=== PATIENT | female | born 1980 | race Caucasian/White ===

== ENCOUNTER 2017-04-26 09:26 | Emergency (ER) | payer OTHER ==
[2017-04-26 09:45] VITALS: RESP 18
--- NOTE | 2017-04-26 10:11 | PD ---
HPI Chief Complaint ctx Travel History International Travel<30 Days: No Contact w/Intl Traveler<30Days: No Known Affected Area: No History of Present Illness HPI 36-year-old 015, IUP at 32.6 care, treated by obesity, prior delivery 3 The patient presents complaining of the onset of irregular but painful contractions at 3 AM this morning. She reports that although the contractions are irregular in pattern, they are have increased in intensity and frequency overnight to now every 4-12 minutes. She denies any aggravating or alleviating factors except as noted. She reports that there was no relief with a warm bath. She is bringing drinking a lot of water by mouth. She reports associated pelvic and vaginal pressure. She denies any LOF or VB. She reports good movement. She has no other OB complaints at this time Weeks Gestation: 32 Para: 3 : 5 Last Menstrual Period: Apr 26, 2017 History Past Medical History Narrative Medical Obesity Obstetric History Obstetric History SAB x1 FT C/S x3, one with twins Past Surgical History Narrative Surgical C/S x3 Family History Narrative Family History Colon CA Brain aneurysm Social History Alcohol Use: No Tobacco Use: No Substance Abuse: No Allergies-Medications (Allergen,Severity, Reaction): Coded Allergies: doxycycline (Unverified Allergy, Mild, 04/09/17) hives, swelling in mouth Review of Systems Except as stated in HPI: all other systems reviewed are Neg Physical Exam Narrative GENERAL: Well-nourished, well-developed patient. SKIN: Warm and dry. HEAD: Normocephalic and atraumatic. EYES: No scleral icterus. No injection or drainage. ENT: No nasal drainage noted. Mucous membranes pink. Airway patent. NECK: Supple, trachea midline. No JVD. CARDIOVASCULAR: Regular rate and rhythm without murmurs, gallops, or rubs. RESPIRATORY: Breath sounds equal bilaterally. No accessory muscle use. BREASTS: deferred ABDOMEN/GI: Abdomen soft, non-tender, bowel sounds present, no rebound, no guarding Gravid GENITOURINARY: External Genitalia: intact and normal in appearance, normal BUS, no cervical or vaginal masses noted, normal rugated and physiologic discharge noted on speculum examination. fibronectin obtained. SVE closed/thick/high/ posterior. Membranes intact. FHT's: Category 1 heart rate tracing with baseline 140s. Good accelerations and no decelerations noted. NST is reactive. EXTREMITIES: No cyanosis or edema. BACK: Nontender without obvious deformity. No CVA tenderness. NEUROLOGICAL: Awake and alert. Motor and sensory grossly within normal limits. Five out of 5 muscle strength in all muscle groups. Normal speech. Psychiatric: Normal memory and affect Musculoskeletal: Grossly normal range of motion, gait and muscle strength MDM Plan Assessment/Plan: 1. IUP at 32.6 2. contractions: Patient with regular contractions noted on monitoring , will give 1 L IV fluid bolus, fibronectin obtained and sent, and urinalysis obtained and sent. SVE closed without evidence of labor, full sign out given to Dr. Sam who will follow up on results. 3. Prior delivery 3 4. Obesity 5. well-being: Patient with reassuring testing with reactive NST and category 1 heart rate tracing FHR is appropriate and reassuring for gestational age; patient will be given Kick counts if discharged home. 6. Follow-up with Dr. Pratt in 2-3 days if discharged home or sooner if needed Madai Maravilla MD Apr 26, 2017 10:11
[2017-04-26] MEDS ORDERED: LACTATED RINGER'S 1000 ML INJ 1,000 ML IV SCH (10:13)
[2017-04-26 10:34] LABS: BACTERIA, URINE RARE /hpf; BLOOD, URINE NEG (NEG); COMMENT (UR) CULT NOT INDICATED; CULTURE IF INDICATED CULT NOT INDICATED; GLUCOSE,URINE NEG (NEG); KETONE, URINE NEG (NEG); NITRITE,URINE NEG (NEG); PH, URINE 7.5 (5.0-8.5); SQUAMOUS EPITHELIAL CELL URINE <1 /hpf (0-5); URINE COLOR YELLOW (YELLW/STRAW)
[2017-04-26 10:54] VITALS: TEMP 98.4
[2017-04-26] MEDS ORDERED: NIFEdipine 10 MG CAP PO ONE (14:00)
== END 2017-04-26 14:38 | disposition home or self-care (01) ==
LOC: HOBED 09:26
DX: O62.9 Abnormality of forces of labor, unspecified (principal); O99.213 Obesity complicating pregnancy, third trimester; O34.219 Maternal care for unspecified type scar from previous cesarean delivery; Z3A.32 32 weeks gestation of pregnancy
CPT/HCPCS: 59025; 81001; 82731; 96360; 96361; 99284; J7120

== ENCOUNTER 2017-06-08 07:22 | Inpatient (IN) | payer OTHER ==
[2017-06-08] VITALS (11 sets, daily range): BP systolic 109–131; BP diastolic 59–85; PULSE 65–100; RESP 16–18; TEMP 97.6–98.3; O2SAT 98–100
[~2017-06-08] VITALS: Ht 160 cm; Wt 83.0 kg
[2017-06-08] MEDS ORDERED: LACTATED RINGER'S 1000 ML INJ 1,000 ML IV ONE (07:55)
[2017-06-08 08:05] LABS: BASOPHIL % 0.2 % (0.0-2.0); EOSINOPHIL # 0.1 TH/MM3 (0-0.4); EOSINOPHIL % 0.7 % (0.0-4.0); HEMATOCRIT 36.3 % (35.0-46.0); LYMPH % 27.1 % (9.0-44.0); LYMPHOCYTE # 4.2 TH/MM3 (1.0-4.8); MEAN CELL VOLUME 84.2 FL (80.0-100.0); MEAN CORPUSCULAR HEMOGLOBIN 28.2 PG (27.0-34.0); MEAN CORPUSCULAR HGB CONC 33.5 % (32.0-36.0); MONO % 6.9 % (0.0-8.0); NEUT % 65.1 % (16.0-70.0); PLATELET COUNT 209 TH/MM3 (150-450); RED BLOOD COUNT 4.32 MIL/MM3 (4.00-5.30); RED CELL DISTRIBUTION WIDTH 14.5 % (11.6-17.2); WHITE BLOOD COUNT 15.3 TH/MM3 (4.0-11.0)
[2017-06-08 08:06] LABS: HEMO FLAGS AUTO DIFF
--- NOTE | 2017-06-08 08:08 | HHI.HP ---
HPI Chief Complaint Repeat and bilateral tubal ligation. Date Seen: Jun 08, 2017 Travel History International Travel<30 Days: No Contact w/Intl Traveler<30Days: No History of Present Illness HPI Patient is a 37 year old at 39-0/7 weeks gestation who presents today for repeat with bilateral tubal ligation. She denies any vaginal bleeding , discharge, gush or leaking of fluid. Positive movement. Occasional contractions. History of Preeclampsia in previous , this complicated by contractions, on Procardia XL 30 mg by mouth daily. 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 Obstetric History Obstetric History x 3 AMA Hx Pre-eclampsia Past Surgical History Narrative Surgical Cholecystectomy 2016 D&E 2016 section 2000, 2006, 2011 Family History Narrative Family History Breast cancer Colon cancer Aneurysm Social History Alcohol Use: No Tobacco Use: No Substance Abuse: No Allergies-Medications (Allergen,Severity, Reaction): Coded Allergies: doxycycline (Unverified Allergy, Mild, 04/09/17) hives, swelling in mouth Review of Systems Except as stated in HPI: all other systems reviewed are Neg General / Constitutional: No: Fever, Chills Eyes: No: Blurred Vision, Visual changes HENT: No: Headaches Cardiovascular: No: Chest Pain or Discomfort, Palpitations Respiratory: No: Short of Breath Gastrointestinal: No: Nausea, Vomiting Genitourinary: No: Dysuria, Hematuria, Pelvic Pain, Discharge, Vaginal Bleeding Musculoskeletal: No: Edema Neurologic: No: Headache Psychiatric: No: Substance Abuse Physical Exam Narrative GENERAL: Well-nourished, well-developed patient. SKIN: Warm and dry. HEAD: Normocephalic and atraumatic. EYES: No scleral icterus. No injection or drainage. ENT: No nasal drainage noted. Mucous membranes pink. Airway patent. NECK: Supple, trachea midline. No JVD. CARDIOVASCULAR: Regular rate and rhythm without murmurs, gallops, or rubs. RESPIRATORY: Breath sounds equal bilaterally. No accessory muscle use. BREASTS: Bilateral exam showed no masses , no retractions, no nipple discharge. ABDOMEN/GI: Abdomen soft, non-tender, bowel sounds present, no rebound, no guarding Gravid to 39 weeks size GENITOURINARY: External Genitalia: intact and normal in appearance Presentation: vertex Membranes: intact Uterine Contractions: occasional FHT's: Category: I Baseline: 150 Reactive: + Variability: moderate Decels: none EXTREMITIES: No cyanosis or edema. BACK: Nontender without obvious deformity. No CVA tenderness. NEUROLOGICAL: Awake and alert. Motor and sensory grossly within normal limits. Normal speech. Caprini VTE Risk Assessment Caprini VTE Risk Assessment: No/Low Risk (score <= 1) Caprini Risk Assessment Model Point Value = 1 Point Value = 2 Point Value = 3 Point Value = 5 Age 41-60 Minor surgery BMI > 25 kg/m2 Swollen legs Varicose veins or History of unexplained or recurrent spontaneous Oral contraceptives or hormone replacement Sepsis (< 1 month) Serious lung disease, including pneumonia (< 1 month) Abnormal pulmonary function Acute myocardial infarction Congestive heart failure (< 1 month) History of inflammatory bowel disease Medical patient at bed rest Age 61-74 Arthroscopic surgery Major open surgery (> 45 min) Laparoscopic surgery (> 45 min) Malignancy Confined to bed (> 72 hours) Immobilizing plaster cast Central venous access Age >= 75 History of VTE Family history of VTE Factor V Leiden Prothrombin [id number] Lupus anticoagulant Anticardiolipin antibodies Elevated serum homocysteine Heparin-induced thrombocytopenia Other congenital or acquired thrombophilia Stroke (< 1 month) Elective arthroplasty Hip, pelvis, or leg fracture Acute spinal cord injury (< 1 month) Prophylaxis Regimen Total Risk Factor Score Risk Level Prophylaxis Regimen 0-1 Low Early ambulation 2 Moderate Order ONE of the following: *Sequential Compression Device (SCD) *Heparin 5000 units SQ BID 3-4 Higher Order ONE of the following medications: *Heparin 5000 units SQ TID *Enoxaparin/Lovenox 40 mg SQ daily (WT < 150 kg, CrCl > 30 mL/min) *Enoxaparin/Lovenox 30 mg SQ daily (WT < 150 kg, CrCl > 10-29 mL/min) *Enoxaparin/Lovenox 30 mg SQ BID (WT < 150 kg, CrCl > 30 mL/min) AND/OR *Sequential Compression Device (SCD) 5 or more Highest Order ONE of the following medications: *Heparin 5000 units SQ TID (Preferred with Epidurals) *Enoxaparin/Lovenox 40 mg SQ daily (WT < 150 kg, CrCl > 30 mL/min) *Enoxaparin/Lovenox 30 mg SQ daily (WT < 150 kg, CrCl > 10-29 mL/min) *Enoxaparin/Lovenox 30 mg SQ BID (WT < 150 kg, CrCl > 30 mL/min) AND *Sequential Compression Device (SCD) Data Data Vital Signs Reviewed: Yes Orders Orders Admit To Inpatient (06/08/17 ) Code Status (06/08/17 07:55) Vital Signs (Adult) .ON ADMISSION (06/08/17 07:55) Activity Oob Ad Connie (06/08/17 07:55) Heart (06/08/17 07:55) Urinary Catheter Management WISAM.Q8H (06/08/17 07:55) ^ Preps (06/08/17 07:55) Scd / Gavin / Foot Pump WISAM.QSHIFT (06/08/17 07:55) ^ Ultrasound For Locatio (06/08/17 07:55) Diet Npo (06/08/17 Breakfast) Lactated Ringer's 1000 Ml Inj (Lr 1000 M (06/08/17 07:55) Lactated Ringer's 1000 Ml Inj (Lr 1000 M (06/08/17 08:25) Cefazolin 2 Gm Premix (Ancef 2 Gm Premix (06/08/17 09:00) Citric Acid-Sodium Citrate Liq (Bicitra (06/08/17 09:30) Type And Screen (06/08/17 07:55) Complete Blood Count With Diff (06/08/17 07:55) Urinalysis - C+S If Indicated (06/08/17 07:55) Inpatient Certification (06/08/17 ) Specimen To Be Collected PRN (06/08/17 07:55) Group B Strep: Negative Assessment/Plan Assessment and Plan 37 year old at 39-0/7 weeks gestation. 1. IUP- Category I tracing, reassuring. 2. Repeat and bilateral tubal ligation. 3. Hx Pre-eclampsia 4. GBS negative. 5. AMA, grand multiparity dw Juana Small MD, R3 Jun 08, 2017 08:08
[2017-06-08] MEDS ORDERED: METOCLOPRAMIDE HCL 10 MG/2 ML VIAL ONE (08:10)
[2017-06-08 08:21] LABS: BACTERIA, URINE MOD /hpf; BLOOD, URINE TRACE (NEG); COMMENT (UR) CULTURE INDICATED; CULTURE IF INDICATED CULTURE INDICATED; GLUCOSE,URINE NEG (NEG); KETONE, URINE NEG (NEG); MUCUS URINE FEW /lpf (OCC); NITRITE,URINE NEG (NEG); SQUAMOUS EPITHELIAL CELL URINE 2 /hpf (0-5); URINE COLOR YELLOW (YELLW/STRAW)
[2017-06-08] MEDS ORDERED: LACTATED RINGER'S 1000 ML INJ 1,000 ML IV SCH ×2 (08:25→17:20)
[2017-06-08 08:48] LABS: BANDS 2 % (0-6); EOSINOPHILS 1 % (0-4); MYELOCYTES 6 % (0-0); NEUTROPHIL # MANUAL DIFF 9.6 TH/MM3 (1.8-7.7); POLYS (SEG NEUTROPHILS) 55 % (16-70); WBC DIFF SAMPLE 100
[2017-06-08 08:49] LABS: PLATELET ESTIMATE SMEAR NORMAL (NORMAL); PLATELET MORPHOLOGY NORMAL (NORMAL); SCAN/DIFF FINAL DIFF MANUAL
[2017-06-08] MEDS ORDERED: ceFAZolin 2 GM PREMIX 50 ML IV SCH (09:00)
[2017-06-08] MEDS ORDERED: CITRIC ACID-SODIUM CITRATE LIQ 30 ML UDC PO SCH (09:30)
[2017-06-08] MEDS ORDERED: ACETAMINOPHEN 1000 MG/100 ML 100 ML IV ONE (10:03)
[2017-06-08] MEDS ORDERED: BUPIVACAINE HCL PF 0.25% 10 ML VIAL ONE ×2 (10:58→11:00)
[2017-06-08] MEDS ORDERED: ONDANSETRON HCL 4 MG/2 ML VIAL ONE (11:59)
[2017-06-08] MEDS ORDERED: SODIUM CHLORIDE 0.9% 20 ML VIAL IV ONE (12:00)
[2017-06-08] MEDS ORDERED: DEXAMETHASONE SOD PHOS 4 MG/ML VIAL IV ONE (12:00)
[2017-06-08] MEDS ORDERED: LIDOCAINE 2%/EPINEPHrine PF 1:200,000 20ML SDV OTHER ONE (12:00)
[2017-06-08] MEDS ORDERED: OXYTOCIN 10 UNIT/ML AMP IV ONE (12:00)
[2017-06-08] MEDS ORDERED: MORPHINE SULFATE PF 5 MG/10 ML VIAL ONE (12:00)
[2017-06-08] MEDS ORDERED: NORMOSOL R INJ 2,000 ML IV ONE (12:00)
[2017-06-08] MEDS ORDERED: ONDANSETRON HCL 4 MG/2 ML VIAL IV PUSH ONE (12:00)
[2017-06-08] MEDS ORDERED: ceFAZolin INJ 1,000 MG VIAL IV ONE (12:00)
[2017-06-08] MEDS ORDERED: PHENYLEPH/NS 1000 MCG/10 ML SYR IV ONE (12:00)
[2017-06-08] MEDS ORDERED: DOCUSATE SODIUM 50 MG/SENNA 8.6 MG TAB PO PRN (12:30)
[2017-06-08] MEDS ORDERED: oxyCODONE/ACETAMINOPHEN 5 MG/325 MG TAB PO PRN (12:30)
[2017-06-08] MEDS ORDERED: SODIUM CHLORIDE 0.9% FLUSH 10 ML FLUSH IV FLUSH PRN (12:30)
[2017-06-08] MEDS ORDERED: ZOLPIDEM TARTRATE 5 MG TAB PO PRN (12:30)
[2017-06-08] MEDS ORDERED: OXYTOCIN 30 UNITS-500ML PREMIX 500 ML IV ONE ×2 (12:30)
[2017-06-08] MEDS ORDERED: ONDANSETRON HCL 4 MG/2 ML VIAL IV PUSH PRN (12:30)
[2017-06-08] MEDS ORDERED: EPIDURAL-DIPHENHYDRAMINE HCL 50 MG CAP PO PRN (14:00)
[2017-06-08] MEDS ORDERED: EPIDURAL-NALOXONE HCL 0.4 MG/ML AMP IV PUSH PRN (14:00)
[2017-06-08] MEDS ORDERED: EPIDURAL-DIPHENHYDRAMINE HCL 50 MG/ML VIAL IV PUSH PRN (14:00)
[2017-06-08] MEDS ORDERED: EPIDURAL-NO SYSTEMIC NARCOTICS PRN (14:00)
[2017-06-08] MEDS ORDERED: EPIDURAL-DO NOT ADMINISTER ANTICOAGULANTS PRN (14:00)
[2017-06-08] MEDS ORDERED: SE-NCHW CHEW (15:35)
--- NOTE | 2017-06-08 16:50 | MP ---
cc: MARCELL PRATT DATE OF SURGERY 07/09/17 PREOPERATIVE DIAGNOSIS 1. Intrauterine at 39 weeks 2. Desires permanent sterilization. 3. Desires revision of her large incision. POSTOPERATIVE DIAGNOSIS 1. Intrauterine at 39 weeks 2. Desires permanent sterilization. 3. Desires revision of her large incision. 4. Small suprapubic hernia 2 x 2 cm. PROCEDURE 1. Repeat low transverse section 2. Excision of large scar 3. Bilateral tubal ligation 4. Repair of a hernia suprapubically ANESTHESIA Spinal SURGEON Niles Pratt MD FINDINGS A normal male infant, Apgars 9 and 9, weight 8 pounds 2 ounces, baby's name is Grecia. The uterus was normal and scarred from previous surgeries. Fallopian tubes, ovaries were normal. Posterior and anterior cul-de-sac were normal. There was a suprapubic hernia in the fascia 2 x 2 cm below the previous incision. COMPLICATIONS None. COUNTS Correct. ESTIMATED BLOOD LOSS 600 mL FLUIDS Crystalloids. DISPOSITION The patient tolerated the procedure well and went to recovery room in good condition. PROCEDURE IN DETAIL The patient was taken to the operating room identified by name band and verbally and given a spinal anesthetic. She was prepped and draped in the usual sterile manner for a section. She had a large hip to hip indented scar which she wanted repair. Therefore, we went ahead and excised that entire scar, took is down to the fascia. The fascia was taken off the rectus muscle and the abdomen entered under direct vision. The rectus muscles were noted to be spread very wide. The incision was extended with care to avoid the urinary bladder and a bladder flap was created placing the bladder blade into the incision and taking down the peritoneum off the lower uterine segment. The incision was made then in a transverse manner along the lower uterine segment until the uterine cavity was entered. Clear fluid was noted and the incision was extended with the surgeon's fingers. vertex was grasped and with gentle fundal pressure was delivered easily. The remainder of the infant was delivered. There was a nuchal cord x1 and the cord clamping was delayed for 45 seconds. The baby was passed off to the resuscitation team present at the time. The cord blood was obtained. The placenta was removed manually and the uterus curettaged several times with a wet lap. The uterine incision was prepped with 0 Vicryl in a running fashion, second layer imbricating the first. Several [id number] needed to be placed here because of oozing. Once this had been accomplished, the fallopian tubes were identified and knuckled over and a portion removed from the mid portion of the fallopian tube with a #1 catgut and sent off for pathologic evaluation. The procedure was repeated on the contralateral side. The cul-de-sac and gutters were cleaned of blood and debris. The uterus delivered back into the abdomen. There was some oozing from the incision on the right side and several gmdefm-av-cdali stitches were used in that area. Hemostasis was good. However, there was some oozing in this area and some Avitene was placed in this area to control the oozing. At this point, the rectus muscles were still spread way apart and the fascia was taken up almost to the umbilicus until the rectus muscles were more close. The rectus muscles were then reapproximated in several layers trying to create normal anatomy with 0 Vicryl in a running fashion. Once this had been accomplished, the fascia was repaired with 0 Vicryl without difficulty in a running fashion. The hernia was then repaired with 0 Vicryl in several [id number] fashions on the lower fascial hernia. The incision was irrigated with a large amount of fluid at this time and the rectus muscles were spread quite widely. We dissected the fascia up to the umbilicus where the rectus muscles were more closely approximated and then we approximated the rectus muscle with several layers of 0 Vicryl running fashion to replicate normal anatomy. Once this had been accomplished, the subcu layer was placed with a 2-0 Vicryl in a running fashion and more superficial than that we put another line of subcu with a 3-0 Vicryl to reapproximate the skin edges more closely. At this point, we tried to fix the doge ears by undermining the corners and we repaired the skin with a 4-0 Monocryl. It required two sutures to do this since the incision was so wide. At this point, there were three places where the skin edges were not perfectly approximated and we put some 4-0 Monocryl sutures through and through in these areas. At this point, a sterile pressure dressing was placed. The patient was taken to the recovery room in good condition. R. MD RICO Ryder/ /12:24 PM /4:31 PM
[2017-06-08] MEDS ORDERED: SODIUM CHLORIDE 0.9% FLUSH 10 ML FLUSH IV FLUSH SCH (21:00)
[2017-06-08] MEDS ORDERED: OXYTOCIN 30 UNITS-500ML PREMIX 500 ML IV PRN (22:30)
[2017-06-08] MEDS: KETOROLAC TROMETHAMINE 60 MG/2 ML (IM) VIAL IM PRN (22:46)
[2017-06-09 00:02] VITALS: BP 101/68; PULSE 63; RESP 16; TEMP 98.1
[2017-06-09 04:31] VITALS: BP 97/64; PULSE 74; PULSE 77; RESP 16; TEMP 97.5
[2017-06-09] MEDS: KETOROLAC TROMETHAMINE 60 MG/2 ML (IM) VIAL IM PRN ×2 (06:14→11:59)
[2017-06-09 08:10] VITALS: BP 92/67; PULSE 79; RESP 18; TEMP 98.1
[2017-06-09 08:49] LABS: AUTOMATED NEUTROPHIL # 14.6 TH/MM3 (1.8-7.7); BASOPHIL % 0.2 % (0.0-2.0); EOSINOPHIL % 0.2 % (0.0-4.0); HEMATOCRIT 30.6 % (35.0-46.0); HEMO FLAGS DIFF FINAL; LYMPH % 18.7 % (9.0-44.0); LYMPHOCYTE # 3.6 TH/MM3 (1.0-4.8); MEAN CELL VOLUME 84.9 FL (80.0-100.0); MEAN CORPUSCULAR HEMOGLOBIN 28.3 PG (27.0-34.0); MEAN CORPUSCULAR HGB CONC 33.3 % (32.0-36.0); MONO % 5.6 % (0.0-8.0); NEUT % 75.3 % (16.0-70.0); PLATELET COUNT 208 TH/MM3 (150-450); WHITE BLOOD COUNT 19.3 TH/MM3 (4.0-11.0)
--- NOTE | 2017-06-09 09:05 | HHI.OB ---
Subjective Post Operative Day: 1 Remarks Doing well Pain is well controlled Baby is good. Objective Vitals/I&O Vital Signs Date Time Temp Pulse Resp B/P (MAP) Pulse Ox O2 Delivery O2 Flow Rate FiO2 06/09/17 04:31 97/64 (75) 06/09/17 04:31 97.5 77 16 06/09/17 04:31 74 06/09/17 00:02 63 16 101/68 (79) 06/09/17 00:02 98.1 06/08/17 20:55 109/75 (86) 06/08/17 20:55 98.0 68 16 06/08/17 17:00 97.8 72 18 115/68 (84) 06/08/17 12:58 68 06/08/17 12:57 97.6 18 06/08/17 12:55 100 06/08/17 12:44 126/74 (91) 06/08/17 12:44 68 18 99 06/08/17 12:30 18 98 06/08/17 12:30 65 06/08/17 12:30 131/66 (87) 06/08/17 12:15 67 127/59 (81) 06/08/17 12:15 18 06/08/17 12:00 97.8 72 18 128/63 (84) 06/08/17 12:00 98 Result Diagram: 06/09/17 0840 Objective Remarks GENERAL: Well-nourished, well-developed patient. CARDIOVASCULAR: Regular rate and rhythm without murmurs, gallops, or rubs. RESPIRATORY: Breath sounds equal bilaterally. No accessory muscle use. ABDOMEN/GI: Abdomen soft, non-tender, bowel sounds present. Incision: Clean, dry and intact. Fundus: Firm, non-tender at umbilicus. GENITOURINARY: Light to moderate bleeding. EXTREMITIES: No cyanosis or edema, non-tender, without signs of DVT. Medications and IVs Current Medications Medications (Trade) Dose Ordered Sig/Daniel Route Start Time Stop Time Status Last Admin Lactated Ringer's 1,000 ml @ 100 mls/hr Q10H IV 06/08/17 17:20 06/09/17 13:19 06/08/17 00:00 Oxytocin 500 ml @ 100 mls/hr UNSCH X1 PRN IV 06/08/17 22:30 06/09/17 22:29 (NS Flush) 2 ml BID IV FLUSH 06/08/17 21:00 (NS Flush) 2 ml UNSCH PRN IV FLUSH 06/08/17 12:30 (Mylicon Chew) 80 mg QID PRN PO 06/08/17 12:30 (Toradol Inj) 15 mg Q6H PRN IM 06/08/17 12:30 06/09/17 12:29 06/09/17 06:14 (Percocet 5-325 Mg) 1 tab Q4H PRN PO 06/08/17 12:30 (Percocet 5-325 Mg) 2 tab Q4H PRN PO 06/08/17 12:30 (Maria Del Rosario-Colace) 2 tab Q12H PRN PO 06/08/17 12:30 (Ambien) 5 mg HS PRN PO 06/08/17 12:30 (M-M-R Ii Inj) 0.5 ml ONCE ONCE SQ 06/09/17 16:00 06/09/17 16:01 (Boostrix Inj) 0.5 ml ONCE ONCE IM 06/09/17 16:00 06/09/17 16:01 (Zofran Inj) 4 mg Q6H PRN IV PUSH 06/08/17 12:30 06/08/17 17:43 Miscellaneous Information NO SYSTEMIC NARCOTICS TO BE GIVEN FO... UNSCH PRN .XX 06/08/17 14:00 06/09/17 13:59 (Narcan Inj) 0.4 mg UNSCH PRN IV PUSH 06/08/17 14:00 06/09/17 13:59 (Benadryl Inj) 25 mg Q6H PRN IV PUSH 06/08/17 14:00 06/09/17 13:59 (Benadryl) 50 mg Q6H PRN PO 06/08/17 14:00 06/09/17 13:59 Miscellaneous Information ALL NURSING DEPARTMENTS UNSCH PRN .XX 06/08/17 14:00 06/09/17 13:59 Assessment/Plan Assessment and Plan POD#1 Doing well Routine care Check labs Niles Pratt MD Jun 09, 2017 09:05
--- NOTE | 2017-06-09 15:48 | HHI.DCPOC ---
Discharge Care Plan Diagnosis: (1) Status post scar revision (2) Anemia (3) delivery delivered Report Symptoms to Your Doctor -Temperature above 100.5 degrees -Redness, of incision or excessive or foul smelling drainage -Unusual pain or calf pain -Increased vaginal bleeding -Painful or difficulty urinating -Feelings of extreme sadness or anxiety after 2 weeks Goals to Promote Your Health * To prevent worsening of your condition and complications * To maintain your health at the optimal level Directions to Meet Your Goals Take your medications as prescribed Follow your dietary instruction Follow activity as directed Ensure plenty of rest for recovery Drink fluids for hydration Keep your appointments as scheduled Take your immunizations and boosters as scheduled If your symptoms worsen call your PCP, if no PCP go to Urgent Care Center or Emergency Room Smoking is Dangerous to Your Health. Avoid second hand smoke Call the 24-hour crisis hotline for domestic abuse at Niles Pratt MD Jun 09, 2017 15:48
[2017-06-09] MEDS ORDERED: DIPHTH/TETANUS/ACEL PERTUSSIS (BOOSTER) 0.5 ML VIAL/PFS IM ONE (16:00)
[2017-06-09] MEDS ORDERED: MEASLES, MUMPS, RUBELLA VACCINE 0.5 ML VIAL SQ ONE (16:00)
[2017-06-09 16:20] VITALS: BP 105/72; PULSE 89; RESP 18; TEMP 98.8
[2017-06-09] MEDS: ACETAMINOPHEN 325 MG TAB PO PRN (17:44)
[2017-06-09] MEDS: IBUPROFEN 600 MG TAB PO SCH ×2 (17:44→23:48)
[2017-06-09 19:50] VITALS: RESP 16; TEMP 98.1
[2017-06-09] MEDS: oxyCODONE/ACETAMINOPHEN 5 MG/325 MG TAB PO PRN (23:48)
[2017-06-10] MEDS: IBUPROFEN 600 MG TAB PO SCH ×3 (06:21→18:27)
[2017-06-10] MEDS: ACETAMINOPHEN 325 MG TAB PO PRN ×2 (06:21→12:43)
[2017-06-10] MEDS: SIMETHICONE 80 MG CHEWABLE TAB PO PRN ×2 (06:24→16:42)
[2017-06-10 07:55] VITALS: BP 110/82; PULSE 89; RESP 16; TEMP 98.3
[2017-06-10] MEDS ORDERED: PRENATAL VITAMIN CHEWABLE TAB CHEW SCH (09:00)
--- NOTE | 2017-06-10 10:02 | HHI.OB ---
Subjective Post Operative Day: 2 Remarks Ms. Montano is post-csection day 2 and appears well and is ambulating. She has pain which is controlled with motorin and percocet as needed and states she slept well last night. She has normal vaginal bleeding. Denies fever, SOB, chest pain, and peripheral swelling. Objective Vitals/I&O Allergies Coded Allergies Type Severity Reaction Last Updated Verified doxycycline Allergy Mild 06/08/17 No Laboratory Tests Test 06/08/17 07:42 06/09/17 08:40 White Blood Count 15.3 TH/MM3 19.3 TH/MM3 Red Blood Count 4.32 MIL/MM3 3.60 MIL/MM3 Hemoglobin 12.2 GM/DL 10.2 GM/DL Hematocrit 36.3 % 30.6 % Mean Corpuscular Volume 84.2 FL 84.9 FL Mean Corpuscular Hemoglobin 28.2 PG 28.3 PG Mean Corpuscular Hemoglobin Concent 33.5 % 33.3 % Red Cell Distribution Width 14.5 % 14.0 % Platelet Count 209 TH/MM3 208 TH/MM3 Mean Platelet Volume 9.5 FL 9.2 FL Neutrophils (%) (Auto) 65.1 % 75.3 % Lymphocytes (%) (Auto) 27.1 % 18.7 % Monocytes (%) (Auto) 6.9 % 5.6 % Eosinophils (%) (Auto) 0.7 % 0.2 % Basophils (%) (Auto) 0.2 % 0.2 % Neutrophils # (Auto) 10.0 TH/MM3 14.6 TH/MM3 Lymphocytes # (Auto) 4.2 TH/MM3 3.6 TH/MM3 Monocytes # (Auto) 1.1 TH/MM3 1.1 TH/MM3 Eosinophils # (Auto) 0.1 TH/MM3 0.0 TH/MM3 Basophils # (Auto) 0.0 TH/MM3 0.0 TH/MM3 CBC Comment AUTO DIFF DIFF FINAL Differential Total Cells Counted 100 Neutrophils % (Manual) 55 % Band Neutrophils % 2 % Lymphocytes % 26 % Monocytes % 10 % Eosinophils % 1 % Neutrophils # (Manual) 9.6 TH/MM3 Myelocytes 6 % Differential Comment FINAL DIFF MANUAL Platelet Estimate NORMAL Platelet Morphology Comment NORMAL Polychromasia 2.0 % Urine Color YELLOW Urine Turbidity HAZY Urine pH 6.0 Urine Specific [place] 1.021 Urine Protein TRACE mg/dL Urine Glucose (UA) NEG mg/dL Urine Ketones NEG mg/dL Urine Occult Blood TRACE Urine Nitrite NEG Urine Bilirubin NEG Urine Urobilinogen 2.0 MG/DL Urine Leukocyte Esterase SMALL Urine RBC 8 /hpf Urine WBC 9 /hpf Urine Squamous Epithelial Cells 2 /hpf Urine Bacteria MOD /hpf Urine Mucus FEW /lpf Microscopic Urinalysis Comment CULTURE INDICATED Orders Procedure Category Date Status Time Admit To Inpatient ADMITTING 06/08/17 Transmitted Code Status CODE 06/08/17 Transmitted 07:55 Lactated Ringer's MED 06/08/17 Complete 1000 Ml Inj (Lr 1000 M 07:55 Lactated Ringer's MED 06/08/17 Complete 1000 Ml Inj (Lr 1000 M 08:25 Cefazolin 2 Gm Premix MED 06/08/17 Complete (Ancef 2 Gm Premix 09:00 Citric Acid-Sodium MED 06/08/17 Complete Citrate Liq (Bicitra 09:30 Type And Screen BBK 06/08/17 Complete 07:55 Complete Blood Count LAB 06/08/17 Complete With Diff 07:55 Urinalysis - C+S If LAB 06/08/17 Complete Indicated 07:55 Inpatient ADMITTING 06/08/17 Transmitted Certification Metoclopramide Inj MED 06/08/17 Complete (Reglan Inj) 08:10 Urine Culture CRIA 06/08/17 Complete 07:42 Acetaminophen 1000 MED 06/08/17 Complete Mg/100 Ml (Ofirmev 10 10:03 Bupivacaine Pf 0.25% MED 06/08/17 Complete Inj (Marcaine Pf 0. 10:58 Bupivacaine Pf 0.25% MED 06/08/17 Complete Inj (Marcaine Pf 0. 11:00 Ondansetron Inj MED 06/08/17 Complete (Zofran Inj) 11:59 Vital Signs (Adult) WISAM 06/08/17 In Process 12:20 Activity Bed Rest WISAM 06/08/17 In Process 12:20 ^ Discontinue WISAM 06/09/17 In Process 12:20 Remove Dressing WISAM 06/09/17 In Process 12:20 ^ Binder WISAM 06/08/17 In Process ^ Rhogam WISAM 06/08/17 In Process 12:20 Diet Regular Basic DIET 06/08/17 Transmitted Lunch Lactated Ringer's MED 06/08/17 Complete 1000 Ml Inj (Lr 1000 M 17:20 Oxytocin 30 MED 06/08/17 Complete Units-500ml Premix 12:30 Oxytocin 30 MED 06/08/17 Complete Units-500ml Premix 22:30 Sodium Chloride 0.9% MED 06/08/17 In Process Flush (Ns Flush) 21:00 Sodium Chloride 0.9% MED 06/08/17 In Process Flush (Ns Flush) 12:30 Simethicone Chew MED 06/08/17 In Process (Mylicon Chew) 12:30 Ketorolac Inj MED 06/08/17 Complete (Toradol Inj) 12:30 Oxycodone-Acetamin MED 06/08/17 In Process 5-325 Mg (Percocet 12:30 Oxycodone-Acetamin MED 06/08/17 In Process 5-325 Mg (Percocet 12:30 Cefazolin Inj (Ancef MED 06/08/17 Complete Inj) 14:00 Docusate Sodium-Senna MED 06/08/17 In Process (Maria Del Rosario-Colace) 12:30 Zolpidem (Ambien) MED 06/08/17 In Process 12:30 Ztjonie-Azfci-Aodkfzn MED 06/09/17 Complete Inj (M-M-R Ii Inj) 16:00 Psbx-Jix-Oryjya MED 06/09/17 Complete (Booster) Inj 16:00 Complete Blood Count LAB 06/09/17 Complete With Diff 06:00 Ondansetron Inj MED 06/08/17 In Process (Zofran Inj) 12:30 Remove Urinary WISAM 06/09/17 In Process Catheter 12:20 Oxytocin 30 MED 06/08/17 Complete [facility]ml [facility] Complete Information 14:00 Naloxone Inj (Narcan MED 06/08/17 Complete Inj) 14:00 Diphenhydramine Inj MED 06/08/17 Complete (Benadryl Inj) 14:00 Diphenhydramine MED 06/08/17 Complete (Benadryl) 14:00 Misc Nursing MED 06/08/17 Complete Information 14:00 Cefazolin Inj (Ancef MED 06/08/17 Complete Inj) 17:00 Cefazolin Inj (Ancef MED 06/09/17 Complete Inj) 05:00 Weilwlp-Sgg-Ic-Iron MED 06/10/17 In Process Prena Chew ( 09:00 Ibuprofen (Motrin) MED 06/09/17 In Process 18:00 Acetaminophen MED 06/09/17 In Process (Tylenol) 16:00 Vital Signs Date Time Temp Pulse Resp B/P (MAP) Pulse Ox O2 Delivery O2 Flow Rate FiO2 06/10/17 07:55 110/82 (91) 06/10/17 07:55 98.3 89 16 06/09/17 19:50 98.1 16 06/09/17 16:20 98.8 06/09/17 16:20 89 18 105/72 (83) 06/09/17 08:10 98.1 06/09/17 08:10 79 18 92/67 (75) 06/09/17 04:31 97/64 (75) 06/09/17 04:31 97.5 77 16 06/09/17 04:31 74 06/09/17 00:02 63 16 101/68 (79) 06/09/17 00:02 98.1 06/08/17 20:55 109/75 (86) 06/08/17 20:55 98.0 68 16 06/08/17 17:00 97.8 72 18 115/68 (84) 06/08/17 12:58 68 06/08/17 12:57 97.6 18 06/08/17 12:55 100 06/08/17 12:44 126/74 (91) 06/08/17 12:44 68 18 99 06/08/17 12:30 18 98 06/08/17 12:30 65 06/08/17 12:30 131/66 (87) 06/08/17 12:15 67 127/59 (81) 06/08/17 12:15 18 06/08/17 12:00 97.8 72 18 128/63 (84) 06/08/17 12:00 98 06/08/17 07:45 18 06/08/17 07:45 98.3 06/08/17 07:33 100 127/85 (99) Vital Signs Date Time Temp Pulse Resp B/P (MAP) Pulse Ox O2 Delivery O2 Flow Rate FiO2 06/10/17 07:55 110/82 (91) 06/10/17 07:55 98.3 89 16 06/09/17 19:50 98.1 16 06/09/17 16:20 98.8 06/09/17 16:20 89 18 105/72 (83) Result Diagram: 06/09/17 0840 Objective Remarks GENERAL: Well-nourished, well-developed patient. CARDIOVASCULAR: Regular rate and rhythm without murmurs, gallops, or rubs. RESPIRATORY: Breath sounds equal bilaterally. No accessory muscle use. ABDOMEN/GI: Abdomen soft, non-tender, bowel sounds present. Incision: Clean, dry and intact. There is some erythema surrounding the incision Fundus: Firm, non-tender at umbilicus. GENITOURINARY: Light to moderate bleeding. EXTREMITIES: No cyanosis or edema, non-tender, without signs of DVT. Medications and IVs Current Medications Medications (Trade) Dose Ordered Sig/Daniel Route Start Time Stop Time Status Last Admin (NS Flush) 2 ml BID IV FLUSH 06/08/17 21:00 (NS Flush) 2 ml UNSCH PRN IV FLUSH 06/08/17 12:30 (Mylicon Chew) 80 mg QID PRN PO 06/08/17 12:30 06/10/17 06:24 (Percocet 5-325 Mg) 1 tab Q4H PRN PO 06/08/17 12:30 06/09/17 23:48 (Percocet 5-325 Mg) 2 tab Q4H PRN PO 06/08/17 12:30 (Maria Del Rosario-Colace) 2 tab Q12H PRN PO 06/08/17 12:30 (Ambien) 5 mg HS PRN PO 06/08/17 12:30 (Zofran Inj) 4 mg Q6H PRN IV PUSH 06/08/17 12:30 06/08/17 17:43 (Motrin) 600 mg Q6HR PO 06/09/17 18:00 06/10/17 06:21 (Tylenol) 650 mg Q4H PRN PO 06/09/17 16:00 06/10/17 06:21 Assessment/Plan Assessment and Plan 1. POD#2 Erythema surrounding incision could be due to pressure from bandage and/or clothing. Will continue to monitor to ensure no infection is present Routine post-csection care Pt knows to alert us if anything changes Niles Pratt MD Jun 10, 2017 10:02
[2017-06-10] MEDS: oxyCODONE/ACETAMINOPHEN 5 MG/325 MG TAB PO PRN (16:32)
[2017-06-10 19:35] VITALS: BP 104/64; PULSE 105; RESP 18; TEMP 98.1; O2SAT 97
[2017-06-10] MEDS ORDERED: SULFAMETHOXAZOLE-TRIMETHOPRIM DS 800-160 MG TAB PO SCH (21:00)
[2017-06-11] MEDS: PRENATAL VITAMIN CHEWABLE TAB CHEW SCH ×2 (00:37→20:43)
[2017-06-11] MEDS: SIMETHICONE 80 MG CHEWABLE TAB PO PRN (00:37)
[2017-06-11] MEDS: IBUPROFEN 600 MG TAB PO SCH ×4 (00:38→18:51)
[2017-06-11] MEDS: oxyCODONE/ACETAMINOPHEN 5 MG/325 MG TAB PO PRN ×2 (00:38→15:42)
[2017-06-11] MEDS: ACETAMINOPHEN 325 MG TAB PO PRN ×2 (06:48→12:16)
[2017-06-11 10:30] VITALS: BP 126/85; PULSE 68; RESP 18; TEMP 98.2
[2017-06-11] MEDS: SULFAMETHOXAZOLE-TRIMETHOPRIM DS 800-160 MG TAB PO SCH (12:16)
--- NOTE | 2017-06-11 17:56 | HHI.OB ---
Subjective Post Operative Day: 3 Remarks Doing well Pain is well controlled Baby is doing well Bleeding is fine Objective Vitals/I&O Vital Signs Date Time Temp Pulse Resp B/P (MAP) Pulse Ox O2 Delivery O2 Flow Rate FiO2 06/11/17 10:30 68 18 126/85 (99) 06/11/17 10:30 98.2 06/10/17 19:35 98.1 105 18 104/64 (77) 97 Result Diagram: 06/09/17 0840 Objective Remarks GENERAL: Well-nourished, well-developed patient. CARDIOVASCULAR: Regular rate and rhythm without murmurs, gallops, or rubs. RESPIRATORY: Breath sounds equal bilaterally. No accessory muscle use. ABDOMEN/GI: Abdomen soft, non-tender, bowel sounds present. Incision: Clean, dry and intact. There is some erythema surrounding the incision Fundus: Firm, non-tender at umbilicus. GENITOURINARY: Light to moderate bleeding. EXTREMITIES: No cyanosis or edema, non-tender, without signs of DVT. Medications and IVs Current Medications Medications (Trade) Dose Ordered Sig/Daniel Route Start Time Stop Time Status Last Admin (NS Flush) 2 ml BID IV FLUSH 06/08/17 21:00 (NS Flush) 2 ml UNSCH PRN IV FLUSH 06/08/17 12:30 (Mylicon Chew) 80 mg QID PRN PO 06/08/17 12:30 06/11/17 00:37 (Percocet 5-325 Mg) 1 tab Q4H PRN PO 06/08/17 12:30 06/11/17 15:42 (Percocet 5-325 Mg) 2 tab Q4H PRN PO 06/08/17 12:30 (Maria Del Rosario-Colace) 2 tab Q12H PRN PO 06/08/17 12:30 (Ambien) 5 mg HS PRN PO 06/08/17 12:30 (Zofran Inj) 4 mg Q6H PRN IV PUSH 06/08/17 12:30 06/08/17 17:43 (Motrin) 600 mg Q6HR PO 06/09/17 18:00 06/11/17 12:16 (Tylenol) 650 mg Q4H PRN PO 06/09/17 16:00 06/11/17 12:16 (Bactrim Ds 800-160 Mg) 1 tab Q12H PO 06/11/17 12:00 06/11/17 12:16 Assessment/Plan Assessment and Plan 1. POD#3 2. Wound infection started bactrim last nite as the erythema increased. It looks better today Will keep her overnite to ensure the Abs are effective. Niles Pratt MD Jun 11, 2017 17:56
[2017-06-11] MEDS ORDERED: SULF1TAB23 PO (17:58)
[2017-06-11] MEDS ORDERED: IBUP-232 PO (17:58)
[2017-06-12] MEDS: SULFAMETHOXAZOLE-TRIMETHOPRIM DS 800-160 MG TAB PO SCH ×2 (00:25→12:42)
[2017-06-12] MEDS: ACETAMINOPHEN 325 MG TAB PO PRN (00:26)
[2017-06-12] MEDS: IBUPROFEN 600 MG TAB PO SCH ×2 (00:26→08:46)
[2017-06-12] MEDS: oxyCODONE/ACETAMINOPHEN 5 MG/325 MG TAB PO PRN ×2 (05:17→12:42)
[2017-06-12] MEDS: SIMETHICONE 80 MG CHEWABLE TAB PO PRN (07:28)
[2017-06-12 08:30] VITALS: BP 124/79; PULSE 99; RESP 16; TEMP 98.3; O2SAT 97
--- NOTE | 2017-06-12 11:11 | HHI.OB ---
Subjective Post Operative Day: 4 Objective Vitals/I&O Vital Signs Date Time Temp Pulse Resp B/P (MAP) Pulse Ox O2 Delivery O2 Flow Rate FiO2 06/12/17 08:30 98.3 99 16 124/79 (94) 97 Result Diagram: 06/09/17 0840 Objective Remarks GENERAL: Well-nourished, well-developed patient. CARDIOVASCULAR: Regular rate and rhythm without murmurs, gallops, or rubs. RESPIRATORY: Breath sounds equal bilaterally. No accessory muscle use. ABDOMEN/GI: Abdomen soft, non-tender, bowel sounds present. Incision: Clean, dry and intact. slight erythema surrounding the incision, no drainage Fundus: Firm, non-tender at umbilicus. GENITOURINARY: Light to moderate bleeding. EXTREMITIES: No cyanosis or edema, non-tender, without signs of DVT. Medications and IVs Current Medications Medications (Trade) Dose Ordered Sig/Daniel Route Start Time Stop Time Status Last Admin (NS Flush) 2 ml BID IV FLUSH 06/08/17 21:00 (NS Flush) 2 ml UNSCH PRN IV FLUSH 06/08/17 12:30 (Mylicon Chew) 80 mg QID PRN PO 06/08/17 12:30 06/12/17 07:28 (Percocet 5-325 Mg) 1 tab Q4H PRN PO 06/08/17 12:30 06/12/17 05:17 (Percocet 5-325 Mg) 2 tab Q4H PRN PO 06/08/17 12:30 (Maria Del Rosario-Colace) 2 tab Q12H PRN PO 06/08/17 12:30 (Ambien) 5 mg HS PRN PO 06/08/17 12:30 (Zofran Inj) 4 mg Q6H PRN IV PUSH 06/08/17 12:30 06/08/17 17:43 (Motrin) 600 mg Q6HR PO 06/09/17 18:00 06/12/17 08:46 (Tylenol) 650 mg Q4H PRN PO 06/09/17 16:00 06/12/17 00:26 (Bactrim Ds 800-160 Mg) 1 tab Q12H PO 06/11/17 12:00 06/12/17 00:25 Assessment/Plan Assessment and Plan 1. POD#4 pt doing well incision is healing well. just slight erythema noted vss pain well managed with oral pain medication routine care Discharge Planning dc home today Emily Greer Jun 12, 2017 11:11
--- NOTE | 2017-06-12 11:20 | HHI.DS ---
Admission Date Jun 08, 2017 at 07:22 Discharge Date: Jun 12, 2017 Admitting Diagnosis term previous c section desires sterilization revision of c section scar Diagnosis: (1) Status post scar revision ICD Codes: Z98.890 - Other specified postprocedural states (2) delivery delivered ICD Codes: O82 - Encounter for delivery without indication (3) Anemia ICD Codes: D64.9 - Anemia, unspecified Delivery Date: Jun 08, 2017 : Repeat Reason: repeat desired sterilization : Male Brief History Patient is a 37 year old at 39-0/7 weeks gestation who presents today for repeat with bilateral tubal ligation. She denies any vaginal bleeding , discharge, gush or leaking of fluid. Positive movement. Occasional contractions. History of Preeclampsia in previous , this complicated by contractions, on Procardia XL 30 mg by mouth daily. Hospital Course repeat c section bilateral tubal ligation revision of c section scar repair hernia suprapubically routine Pt Condition on Discharge: Good Discharge Disposition: Discharge Home Discharge Instructions Diet Instructions: As Tolerated, No Restrictions Additional Diet Instructions: Drink at least 8 - 16 oz bottles of water a day Activities You Can Perform: Shower Only-No Bath Activities to Avoid: Prolonged Standing, Strenuous Activity, Sexual Activity Additional Activity Instruc.: No driving until off pain medications Do not lift anything heavier than your baby in an infant carrier Follow up Referrals: DIRECTOR OF CATH LAB - 1 Week @ [facility] New Medications: Ibuprofen (Ibuprofen) 600 Mg Tab 600 MG PO Q6HR for Pain Management, #30 TAB Sulfamethoxazole-Trimethoprim (Sulfamethoxazole-Trimethoprim) 800-160 Mg Tab 1 TAB PO Q12H for wound infection, #12 TAB Continued Medications: Vit W/ Ferrous Fumara Chew (Se-Tram 19 29-1 mg Chew) 1 Chew 1 TAB CHEW DAILY for Nutritional Supplement, EA 0 Refills Emily Greer Jun 12, 2017 11:20
== END 2017-06-12 14:23 | disposition home or self-care (01) | DRG 766 ==
LOC: H2EB 07:22 → H1EA 13:15
PROVIDERS: ADMIT Obstetrics & Gynecology; ATTEND Obstetrics & Gynecology
PROC: 10D00Z1 Extraction of Products of Conception, Low, Open Approach (ICD-10-PCS; principal; 2017-06-08)
PROC: 0UB70ZZ Excision of Bilateral Fallopian Tubes, Open Approach (ICD-10-PCS; 2017-06-08)
PROC: 0WQF0ZZ Repair Abdominal Wall, Open Approach (ICD-10-PCS; 2017-06-08)
PROC: 0HB7XZZ Excision of Abdomen Skin, External Approach (ICD-10-PCS; 2017-06-08)
DX: O34.211 Maternal care for low transverse scar from previous cesarean delivery (principal); D64.9 Anemia, unspecified; Z37.0 Single live birth; O99.02 Anemia complicating childbirth; Z14.1 Cystic fibrosis carrier; Z30.2 Encounter for sterilization; Z3A.39 39 weeks gestation of pregnancy; K46.9 Unspecified abdominal hernia without obstruction or gangrene; O09.529 Supervision of elderly multigravida, unspecified trimester
CPT/HCPCS: 59025; 81001; 85007; 85025; 85027; 86850; 86900; 86901; 87086; 88302; J0131; J0690; J1100; J1885; J2274; J2370; J2405; J2590; J2765; J7120